=== PATIENT | male | born 1965 | race Caucasian/White ===

== ENCOUNTER 2022-11-10 15:03 | Emergency (ER) | payer SELFPAY ==
[~2022-11-10] VITALS: Ht 172.7 cm; Wt 80.7 kg
[2022-11-10] MEDS ORDERED: PREDNISONE20 M1 PO (16:06)
== END 2022-11-10 16:21 | disposition home or self-care (01) ==
LOC: ED 15:03
DX: T55.0X1A Toxic effect of soaps, accidental (unintentional), initial encounter (principal); L24.5 Irritant contact dermatitis due to other chemical products; Y92.89 Other specified places as the place of occurrence of the external cause

== ENCOUNTER 2024-01-24 19:22 | Emergency (ER) | payer OTHER ==
[~2024-01-24] VITALS: Ht 172.7 cm; Wt 94.8 kg
[~2024-01-24 19:22] MED LIST: PREDNISONE20 M1 PO
[2024-01-24] MEDS ORDERED: MORPHINE Sulfate 2 MG/ML SYR IV ONE (19:30)
[2024-01-24] MEDS ORDERED: IOHEXOL 300 MG/ML 100 ML VIAL IV ONE (19:35)
[2024-01-24 20:03] LABS: BASO % 0.2 % (0.0-1.0); EOS # 0.1 10*3/uL (0.0-0.4); EOS % 0.8 % (1.0-4.0); HEMATOCRIT 45.6 % (42.0-52.0); MEAN CELL VOLUME 87.2 fl (80.0-94.0); MEAN CORPUSCULAR HGB 30.2 pg (27.0-31.0); MEAN CORPUSCULAR HGB CONC 34.6 g/dl (33.0-37.0); MONO % 5.4 % (3.0-9.0); NEUT # 14.5 10*3/uL (2.3-7.9); NEUT % 77.7 % (47.0-73.0); PLATELET COUNT AUTOMATED 309 10*3/uL (130-400); RED BLOOD COUNT 5.23 10*6/uL (4.50-5.90); RED CELL DISTRI WIDTH 12.4 % (0-14.5); WHITE BLOOD COUNT 18.7 10*3/uL (4.8-10.8)
[2024-01-24 20:17] LABS: ACT PARTIAL THROMBO TIME 24.3 SECONDS (20.0-32.1)
[2024-01-24 20:26] LABS: BUN 13 mg/dl (9-23); CHLORIDE 106 mmol/L (98-107); POTASSIUM 3.8 mmol/L (3.4-5.1)
[2024-01-24] MEDS ORDERED: SODIUM CHLORIDE 0.9% 1,000 ML IV ONE (20:30)
[2024-01-24 20:37] LABS: ETHYL ALCOHOL < 3.0 mg/dl (<3)
== END 2024-01-24 22:11 | disposition short-term general hospital (02) ==
LOC: ED 19:22
PROVIDERS: Internal Medicine
DX: S32.512A Fracture of superior rim of left pubis, initial encounter for closed fracture (principal); S32.592A Other specified fracture of left pubis, initial encounter for closed fracture; S32.591A Other specified fracture of right pubis, initial encounter for closed fracture; S36.892A Contusion of other intra-abdominal organs, initial encounter; I95.9 Hypotension, unspecified; Z87.891 Personal history of nicotine dependence; Z79.899 Other long term (current) drug therapy; V89.2XXA Person injured in unspecified motor-vehicle accident, traffic, initial encounter; Y93.89 Activity, other specified; Y92.410 Unspecified street and highway as the place of occurrence of the external cause; Y99.8 Other external cause status